=== PATIENT | female | born 1985 | race Caucasian/White ===

== ENCOUNTER 2017-01-31 18:46 | Emergency (ER) | payer SELFPAY ==
[2017-01-31] MEDS ORDERED: Sodium Chloride 0.9% 1,000 ML IV ONE (19:14)
[2017-01-31 19:56] LABS: CHLORIDE,CL 108 mmol/L (98-110); SODIUM,NA 142 mmol/L (136-146)
--- NOTE | 2017-01-31 21:20 | EDM.PDOC ---
ED HPI GENERAL MEDICAL PROBLEM - General Chief Complaint: Cardiovascular Problem Stated Complaint: HEART PALPITATIONS Time Seen by Provider: 01/31/17 19:13 Source of Information: Reports: Patient History Limitations: Reports: No Limitations - History of Present Illness INITIAL COMMENTS - FREE TEXT/NARRATIVE: HISTORY AND PHYSICAL: History of present illness: [31-year-old female with a prior history of palpitations previously worked up in the emergency department a workup which was benign, now presents emergency department concerned about palpitations over the last day. Patient states she has intermittent fluttering feeling in her chest. She does not get lightheaded or nearly faint. She has no chest pain or shortness of breath. Patient describes feels like her heart intermittent he skips a beat. She's had no recent illness and has no other complaints. She states her father had some coronary artery disease so she was concerned. Patient has never had a Holter monitor previously she denies the possibility of . Review of systems: As per history of present illness and below otherwise all systems reviewed and negative. Past medical history: As per history of present illness and as reviewed below otherwise noncontributory. Surgical history: As per history of present illness and as reviewed below otherwise noncontributory. Social history: No reported history of drug or alcohol abuse. Family history: As per history of present illness and as reviewed below otherwise noncontributory. Physical exam: Well-appearing patient distress supple neck clear lungs. Rate and rhythm benign abdomen nonfocal neuro benign exam. HEENT: Atraumatic, normocephalic, pupils reactive, negative for conjunctival pallor or scleral icterus, mucous membranes moist, throat clear, neck supple, nontender, trachea midline. Lungs: Clear to auscultation, breath sounds equal bilaterally, chest nontender. Heart: S1S2, regular, negative for clicks, rubs, or JVD. Abdomen: Soft, nondistended, nontender. Negative for masses or hepatosplenomegaly. Negative for costovertebral tenderness. Pelvis: Stable nontender. Genitourinary: Deferred. Rectal: Deferred. Extremities: Atraumatic, negative for cords or calf pain. Neurovascular unremarkable. Neuro: Awake, alert, oriented. Cranial nerves II through XII unremarkable. Cerebellum unremarkable. Motor and sensory unremarkable throughout. Exam nonfocal. Diagnostics: [EKG with normal sinus rhythm at 77 normal axis no STEMI interpreted by me Chest x-ray no acute disease interpreted by me Therapeutics: [IV fluids] Impression: [Palpitations] Plan: [Signs and symptoms consistent with palpitations. Full workup unremarkable. Patient well-appearing with a benign EKG no evidence of arrhythmia. Suspect sinus arrhythmia versus premature contractions. No further workup or treatment indicated at this time. Patient agrees with outpatient follow-up with her primary care for reevaluation and Holter monitoring as needed. Strict return precautions given] Definitive disposition and diagnosis as appropriate pending reevaluation and review of above. 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 Hematologic History: Reports: None Dermatologic History: Reports: None - Infectious Disease History Infectious Disease History: Reports: Chicken Pox - Past Surgical History HEENT Surgical History: Reports: None Cardiovascular Surgical History: Reports: None Social & Family History - Family History Family Medical History: Noncontributory Endocrine/Metabolic: Reports: Diabetes, type II - Tobacco Use Smoking Status *Q: Never Smoker Second Hand Smoke Exposure: No - Alcohol Use Days Per Week of Alcohol Use: 0 - Recreational Drug Use Recreational Drug Use: No ED ROS GENERAL - Review of Systems Review Of Systems: See Below (History of present illness) ED EXAM, GENERAL - Physical Exam Exam: See Below (History of present illness) Course - Vital Signs Last Recorded V/S: Last Vital Signs Temp 37.3 C 01/31/17 18:46 Pulse 75 01/31/17 18:46 Resp 18 01/31/17 18:46 BP 121/73 01/31/17 18:46 Pulse Ox 95 01/31/17 18:46 - Orders/Labs/Meds Orders: Active Orders 24 hr Category Date Time Status EKG Documentation Completion [RC] STAT Care 01/31/17 19:14 Active Chest 1V Frontal [CR] Stat Exams 01/31/17 19:14 Ordered Peripheral IV Insertion Adult [OM.PC] Stat Oth 01/31/17 19:14 Ordered Labs: Laboratory Tests 01/31/17 01/31/17 01/31/17 Range/Units 19:18 19:38 19:38 WBC 10.31 (4.0-11.0) K/uL RBC 4.93 (4.30-5.90) M/uL Hgb 15.4 (12.0-16.0) g/dL Hct 44.2 (36.0-46.0) % MCV 89.7 (80.0-98.0) fL MCH 31.2 (27.0-32.0) pg MCHC 34.8 (31.0-37.0) g/dL RDW Std Deviation 42.3 (28.0-62.0) fl RDW Coeff of Kelly 13 (11.0-15.0) % Plt Count 263 (150-400) K/uL MPV 10.00 (7.40-12.00) fL Neut % (Auto) 60.4 (48.0-80.0) % Lymph % (Auto) 26.8 (16.0-40.0) % Roosevelt % (Auto) 10.1 (0.0-15.0) % Eos % (Auto) 2.4 (0.0-7.0) % Baso % (Auto) 0.3 (0.0-1.5) % Neut # (Auto) 6.2 H (1.4-5.7) K/uL Lymph # (Auto) 2.8 H (0.6-2.4) K/uL Roosevelt # (Auto) 1.0 H (0.0-0.8) K/uL Eos # (Auto) 0.3 (0.0-0.7) K/uL Baso # (Auto) 0.0 (0.0-0.1) K/uL Nucleated RBC % 0.0 /100WBC Nucleated RBCs # 0 K/uL Sodium (136-146) mmol/L Potassium (3.5-5.1) mmol/L Chloride (98-110) mmol/L Carbon Dioxide (21-31) mmol/L BUN (6.0-23.0) mg/dL Creatinine (0.6-1.5) mg/dL Est Cr Clr Drug Dosing mL/min Estimated GFR (MDRD) ml/min Glucose (60-110) mg/dL Calcium (8.8-10.8) mg/dL Troponin I < 0.10 (0.0-0.29) NG/ML TSH 3rd Generation (0.47-5.0) uIU/mL Urine HCG, Qual NEGATIVE (NEGATIVE) 01/31/17 Range/Units 19:38 WBC (4.0-11.0) K/uL RBC (4.30-5.90) M/uL Hgb (12.0-16.0) g/dL Hct (36.0-46.0) % MCV (80.0-98.0) fL MCH (27.0-32.0) pg MCHC (31.0-37.0) g/dL RDW Std Deviation (28.0-62.0) fl RDW Coeff of Kelly (11.0-15.0) % Plt Count (150-400) K/uL MPV (7.40-12.00) fL Neut % (Auto) (48.0-80.0) % Lymph % (Auto) (16.0-40.0) % Roosevelt % (Auto) (0.0-15.0) % Eos % (Auto) (0.0-7.0) % Baso % (Auto) (0.0-1.5) % Neut # (Auto) (1.4-5.7) K/uL Lymph # (Auto) (0.6-2.4) K/uL Roosevelt # (Auto) (0.0-0.8) K/uL Eos # (Auto) (0.0-0.7) K/uL Baso # (Auto) (0.0-0.1) K/uL Nucleated RBC % /100WBC Nucleated RBCs # K/uL Sodium 142 (136-146) mmol/L Potassium 4.1 (3.5-5.1) mmol/L Chloride 108 (98-110) mmol/L Carbon Dioxide 23 (21-31) mmol/L BUN 11 (6.0-23.0) mg/dL Creatinine 0.9 (0.6-1.5) mg/dL Est Cr Clr Drug Dosing 96.39 mL/min Estimated GFR (MDRD) > 60.0 ml/min Glucose 93 (60-110) mg/dL Calcium 9.3 (8.8-10.8) mg/dL Troponin I (0.0-0.29) NG/ML TSH 3rd Generation 4.77 (0.47-5.0) uIU/mL Urine HCG, Qual (NEGATIVE) Meds: Medications Discontinued Medications Generic Name Dose Route Start Last Admin Trade Name Susan PRN Reason Stop Dose Admin Sodium Chloride 1,000 mls @ 999 mls/hr 01/31/17 19:14 01/31/17 19:33 Normal Saline IV 01/31/17 20:14 999 mls/hr .Bolus ONE Administration Departure - Departure Time of Disposition: 21:20 Disposition: Home, Self-Care 01 Condition: Good Clinical Impression: Palpitations Referrals: PCP,None [Primary Care Provider] - Additional Instructions: Is not clear what has been causing her palpitations over the last day but a full workup including labs EKG and chest x-ray has all been unremarkable. No further workup or treatment is necessary at this time. Follow-up with your doctor in the next one to 2 days for reevaluation and to discuss and arrange Holter monitoring if indicated. Rest and drink plenty of fluids. Return immediately for new severe or worsening symptoms - My Orders Last 24 Hours: My Active Orders 01/31/17 19:14 EKG Documentation Completion [RC] STAT Chest 1V Frontal [CR] Stat Peripheral IV Insertion Adult [OM.PC] Stat - Assessment/Plan Last 24 Hours: My Active Orders 01/31/17 19:14 EKG Documentation Completion [RC] STAT Chest 1V Frontal [CR] Stat Peripheral IV Insertion Adult [OM.PC] Stat
[2017-01-31 21:38] VITALS: BP 123/56
--- NOTE | 2017-02-01 15:42 | CR ---
EXAM DATE: 01/31/17 PATIENT'S AGE: 31 Patient: ARTHUR YOUNG Facility: [place], [place] Site . Site : 1985 Study: XRay Chest [id number]/2/2017 9:52:17 PM Ordering Physician: Calixto Owens Final Report: INDICATION: Shortness of breath TECHNIQUE: Chest radiograph 1 view COMPARISON: None FINDINGS: Moderate degradation of image quality noted due to body habitus. Cardiovascular and mediastinum: The cardiac silhouette is normal in appearance and size. Mediastinum is within normal limits. Lungs and pleural space: Both lungs are unremarkable in appearance. No sign of pleural effusion. No pneumothorax is seen. Bones and soft tissues: No significant findings. IMPRESSION: 1. No acute cardiopulmonary disease seen. Dictated by: Shayan De La O MD @ 01/31/2017 22:41:38 (Electronic Signature) Report Signed by Proxy. INTERFA[facility] MEDICAL CENTEREdith
== END 2017-01-31 21:30 | disposition home or self-care (01) ==
LOC: MW.ED 18:46
DX: R00.2 Palpitations (principal); E11.9 Type 2 diabetes mellitus without complications; Z88.0 Allergy status to penicillin
CPT/HCPCS: 36415; 71010; 80048; 81025; 84443; 84484; 85025; 93005; 96360; 99285; J7040; 99283

== ENCOUNTER 2017-07-05 15:45 | Emergency (ER) | payer SELFPAY ==
--- NOTE | 2017-07-05 16:35 | EDM.PDOC ---
ED HPI GENERAL MEDICAL PROBLEM - General Chief Complaint: Respiratory Problem Stated Complaint: FLU-LIKE SYMPTOMS Time Seen by Provider: 07/05/17 16:20 Source of Information: Reports: Patient History Limitations: Reports: No Limitations - History of Present Illness INITIAL COMMENTS - FREE TEXT/NARRATIVE: HISTORY AND PHYSICAL: History of present illness: [A she comes to the emergency room complaining of fever chills dry cough headache and body aches. She spent the weekend with a coworker whom she just found out was diagnosed with influenza B. She would like to be tested today. She 's not taken any Tylenol or ibuprofen for her symptoms. She complains of some mild ear tenderness. Clear colored runny nose. Cough is primarily dry. No abdominal pain nausea or vomiting. She heard some mild wheezing this morning but none currently. Denies chest pain shortness of breath and difficulty breathing. Has no other complaints or concerns at this time. She works at a local [employer].] Review of systems: As per history of present illness and below otherwise all systems reviewed and negative. Past medical history: As per history of present illness and as reviewed below otherwise noncontributory. Surgical history: As per history of present illness and as reviewed below otherwise noncontributory. Social history: No reported history of drug or alcohol abuse. Family history: As per history of present illness and as reviewed below otherwise noncontributory. Physical exam: HEENT: Atraumatic, normocephalic. TMs are pearly cole with mild effusions present bilaterally. Oral mucous membranes are pink and moist. No tonsillar swelling erythema or exudate. Neck supple, no lymphadenopathy. Nares are patent with clear discharge present. This is nontender with palpation. Lungs: Clear to auscultation, breath sounds equal bilaterally, chest nontender. no wheezing crackles or rales. Heart: S1S2, regular, negative for clicks, rubs, or JVD. Abdomen: Soft, nondistended, nonteNo masses guarding or rebound.lvis: Stable nontender. Genitourinary: Deferred. Rectal: Deferred. Extremities: Atraumatic. Neurovascular unremarkable. Neuro: Awake, alert, oriented. Motor and sensory unremarkable throughout. Exam nonfocal. Diagnostics: [ influenza A and B swab ] Impression: [Viral illness] Plan: [Discussed with patient that her influenza swabs are negative and that her symptoms are consistent with a viral syndrome. Recommend she push fluids, take [id number] analgesics and fever tamale machine feeder, treat symptomatically and follow- up with PCP. She is in agreement with today's plan. All of her questions are answered and concerns are addressed. Definitive disposition and diagnosis as appropriate pending reevaluation and review of above. 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 Endocrine/Metabolic History: Reports: Hypothyroidism Hematologic History: Reports: None Dermatologic History: Reports: None - Infectious Disease History Infectious Disease History: Reports: Chicken Pox - Past Surgical History HEENT Surgical History: Reports: None Cardiovascular Surgical History: Reports: None Social & Family History - Family History Family Medical History: Noncontributory Endocrine/Metabolic: Reports: Diabetes, type II - Tobacco Use Smoking Status *Q: Never Smoker Second Hand Smoke Exposure: No - Alcohol Use Days Per Week of Alcohol Use: 0 - Recreational Drug Use Recreational Drug Use: No ED ROS GENERAL - Review of Systems Review Of Systems: ROS reveals no pertinent complaints other than HPI. ED EXAM, GENERAL - Physical Exam Exam: See Below Course - Vital Signs Last Recorded V/S: Last Vital Signs Temp 99.0 F 07/05/17 15:57 Pulse 89 07/05/17 17:30 Resp 20 07/05/17 17:30 BP 130/79 07/05/17 17:30 Pulse Ox 99 07/05/17 17:30 Departure - Departure Time of Disposition: 17:16 Disposition: Home, Self-Care 01 Condition: Good Clinical Impression: Viral illness - Discharge Information Instructions: Viral Illness, Adult Referrals: Paige Souza DO [Primary Care Provider] - Forms: ED Department Discharge Additional Instructions: The following information is given to patients seen in the emergency department who are being discharged to home. This information is to outline your options for follow-up care. We provide all patients seen in our emergency department with a follow-up referral. The need for follow-up, as well as the timing and circumstances, are variable depending upon the specifics of your emergency department visit. If you don't have a primary care physician on staff, we will provide you with a referral. We always advise you to contact your personal physician following an emergency department visit to inform them of the circumstance of the visit and for follow-up with them and/or the need for any referrals to a consulting specialist. The emergency department will also refer you to a specialist when appropriate. This referral assures that you have the opportunity for follow-up care with a specialist. All of these measure are taken in an effort to provide you with optimal care, which includes your follow-up. Under all circumstances we always encourage you to contact your private physician who remains a resource for coordinating your care. When calling for follow-up care, please make the office aware that this follow-up is from your recent emergency room visit. If for any reason you are refused follow-up, please contact the [facility] emergency department at and asked to speak to the emergency department charge nurse. [facility] [address] [place], [place] [id number] Follow-up with her local primary care provider at the clinic listed above in 48- 72 hours. Push fluids, get plenty of rest, Tylenol alternating with ibuprofen as needed for fever or discomfort. Return to ER as needed as discussed.
[2017-07-05 17:36] VITALS: BP 130/79
== END 2017-07-05 17:30 | disposition home or self-care (01) ==
LOC: MW.ED 15:45
DX: B34.9 Viral infection, unspecified (principal); E03.9 Hypothyroidism, unspecified; Z88.0 Allergy status to penicillin
CPT/HCPCS: 87804; 99282; 99283

== ENCOUNTER 2021-01-18 18:28 | Observation (INO) | payer BC ==
[2021-01-18] MEDS ORDERED: Ondansetron 4 MG/2 ML SDV IVPUSH ONE (19:01)
[2021-01-18] MEDS ORDERED: Sodium Chloride 0.9% 1,000 ML IV ONE (19:01)
[2021-01-18] MEDS ORDERED: Morphine 4 MG/ML Syringe IVPUSH ONE (19:01)
[2021-01-18 19:48] LABS: BLOOD UREA NITROGEN,BUN 15 mg/dL (7.0-18.0); CARBON DIOXIDE,CO2 24.4 mmol/L (21.0-32.0); CHLORIDE,CL 105 mmol/L (98-107); GLUCOSE RANDOM 140 mg/dL (74-106); LIPASE 94 U/L (73-393); POTASSIUM,K 4.7 mmol/L (3.5-5.1); SODIUM,NA 141 mmol/L (136-145)
--- NOTE | 2021-01-18 20:02 | EDM.PDOC ---
<Liam Santoro D - Last Filed: 01/18/21 22:49> ED HPI GENERAL MEDICAL PROBLEM - General Chief Complaint: Abdominal Pain Stated Complaint: RIGHT SIDE PAIN Time Seen by Provider: 01/18/21 18:56 - Related Data Allergies Allergy/AdvReac Type Severity Reaction Status Date / Time ciprofloxacin Allergy Redness Verified 01/20/21 02:22 Penicillins Allergy Rash Verified 01/19/21 00:32 ED ROS GENERAL - Review of Systems Review Of Systems: See Below ED EXAM, GI/ABD - Physical Exam Exam: See Below Course - Vital Signs Text/Narrative:: Patient was signed out to me pending CT scan. CT scan shows a dilated appendix with periappendiceal fat stranding consistent with appendicitis. Patient well- appearing when reexamined but does have some periumbilical and right lower quadrant abdominal tenderness. IV fluids of Cipro Flagyl n.p.o. and admission for surgical resection Departure - Departure Time of Disposition: 22:50 Disposition: Refer to Observation Condition: Good Clinical Impression: Appendicitis Qualifiers: Appendicitis type: acute appendicitis Acute appendicitis type: with localized peritonitis Appendicitis gangrene presence: unspecified whether gangrene present Appendicitis abscess presence: unspecified whether abscess present - Discharge Information <Belkis Welch E - Last Filed: 01/20/21 09:52> ED HPI GENERAL MEDICAL PROBLEM - General Source of Information: Reports: Patient History Limitations: Reports: No Limitations - History of Present Illness INITIAL COMMENTS - FREE TEXT/NARRATIVE: HISTORY AND PHYSICAL: History of present illness: Patient is a 35-year-old female who presents to the emergency room with complaints of right lower quadrant pain and nausea. She states approximately 2 hours prior to arrival she developed sharp crampy type right lower quadrant pain with associated nausea. Patient denies any fever, chills, headache, change in vision, syncope or near syncope. Denies any chest pain, back pain, shortness of breath or cough. Denies any vomiting, diarrhea, constipation or dysuria. Has not noted any blood in urine or stool. Currently on her menses, normal. Denies any abnormal vaginal discharge or concerns for STIs. Patient has been eating and drinking appropriately. Review of systems: As per history of present illness and below otherwise all systems reviewed and negative. Past medical history: As per history of present illness and as reviewed below otherwise noncontributory. Surgical history: As per history of present illness and as reviewed below otherwise noncontributory. Social history: See social history for further information Family history: As per history of present illness and as reviewed below otherwise noncontributory. Physical exam: General: Well developed and well nourished 35 year old male. Alert and o rientated x 3. Nontoxic in appearance and in no acute distress. Vital signs are stable and have been reviewed by me. Nursing notes were reviewed. HEENT: Atraumatic, normocephalic, pupils equal and reactive bilaterally, negative for conjunctival pallor or scleral icterus, mucous membranes moist, trachea midline. No drooling or trismus noted. No meningeal signs. No hot potato voice noted. Lungs: Clear to auscultation bilaterally. No wheezes, rales, or rhonchi. Chest nontender. Normal work of breathing, no accessory muscles used. Heart: S1S2, regular rate and rhythm without overt murmur, gallops, or rubs. No JVD. No peripheral edema Abdomen: Soft, obese, right upper and lower quadrant tenderness. No rebound tenderness. Normoactive bowel sounds. Negative for masses or costovertebral tenderness. Skin: Intact, warm, dry. No lesions or rashes noted. Hematologic: No petechiae or purpra. Mucosa appropriate color and normal nail bed color and refill. Extremities: Atraumatic, moves all extremities per self without difficulty or deficits, negative for cords or calf pain. Neurovascular unremarkable. Neuro: Awake, alert, oriented. Cranial nerves II through XII unremarkable. Cerebellum unremarkable. Motor and sensory unremarkable throughout. Exam nonfocal. Psychiatric: Mood and affect are appropriate. Normal thought process. Answering questions appropriately. Please note that the patient was seen and evaluated during the 2019 SARS-CoV-2 novel coronavirus pandemic period. Community viral transmission is ongoing at time of this encounter and the emergency department is operating under pandemic response procedures. Medical Decision Making: Patient is a 35-year-old female who presents to the emergency room with complaints of right lower quadrant pain and nausea over the past 2 hours. Patient is tearful during my physical exam. The right upper quadrant and right lower quadrant are both tender to palpation. She states she has had her gallbladder removed. She is concerned that she still has her appendix. We will do basic lab work and likely a CT scan to rule out appendicitis. She does have a ride, will give her some pain management and nausea medications with IV fluids. Patient is agreeable with plan of care. Lab work is unremarkable. She continues to have some tenderness, will move forward with CT scan. VSS. Acute appendicitis. No evidence of appendiceal perforation or abscess. Multiple nonacute findings are noted such as diffuse fatty infiltration of liver, mild splenomegaly, several small bilateral nonobstructing stones. Dr Santoro to arrange surgical consult Diagnostics: CBC, CMP, Lipase, UA, HCGU, CT abd/pelvis Therapeutics: IV fluids, Zofran, Morphine Prescription: Zofran Impression: Appendicitis Definitive disposition and diagnosis as appropriate pending reevaluation and review of above. Left Lower Abdomen Pain Score (Numeric/FACES): 10 Past Medical History - Past Health History Medical/Surgical History: Denies Medical/Surgical History HEENT History: Reports: None Cardiovascular History: Reports: None Respiratory History: Reports: None [employer] History: Reports: None Endocrine/Metabolic History: Reports: Hypothyroidism Hematologic History: Reports: None Dermatologic History: Reports: None - Infectious Disease History Infectious Disease History: Reports: Chicken Pox - Past Surgical History HEENT Surgical History: Reports: None Cardiovascular Surgical History: Reports: None Social & Family History - Family History Family Medical History: No Pertinent Family History Endocrine/Metabolic: Reports: Diabetes, type II - Tobacco Use Tobacco Use Status *Q: Never Tobacco User - Recreational Drug Use Recreational Drug Use: No Course - Vital Signs Last Recorded V/S: Last Vital Signs Temp 96.8 F L 01/20/21 07:44 Pulse 64 01/20/21 07:44 Resp 22 H 01/20/21 07:44 BP 120/65 01/20/21 07:44 Pulse Ox 94 L 01/20/21 07:44 - Orders/Labs/Meds Orders: Medication Orders Acetaminophen (Acetaminophen 325 Mg Tab) 325 mg PO Q4H PRN PRN Reason: Fever Greater Than 101 Hydrocodone Bitart/Acetaminophen (Acetaminophen/Hydrocodone 325-5 Mg Tab) 1 - 2 tab PO Q4H PRN PRN Reason: Pain (moderate 4-6) Albuterol (Albuterol 0.083% 2.5 Mg/3 Ml Neb Soln) 2.5 mg NEB ONETIME PRN PRN Reason: Wheezing Droperidol (Droperidol 5 Mg/2 Ml Sdv) 0.625 mg IVPUSH ONETIME PRN PRN Reason: Nausea/Vomiting Fentanyl (Fentanyl 100 Mcg/2 Ml Sdv) 50 mcg IVPUSH Q5M PRN PRN Reason: Pain (mild 1-3) Hydromorphone HCl (Hydromorphone 1 Mg/Ml Syringe) 1 mg IVPUSH Q10M PRN PRN Reason: Pain (moderate 4-6) Lactated Ringer's (Ringers, Lactated) 1,000 mls @ 125 mls/hr IV ASDIRECTED [facility] Last Admin: 01/20/21 00:00 Dose: 125 mls/hr Documented by: Infusion: 01/19/21 16:31 Dose: 125 mls/hr Documented by: Admin: 01/19/21 08:31 Dose: 125 mls/hr Documented by: Infusion: 01/19/21 07:01 Dose: 125 mls/hr Documented by: Admin: 01/18/21 23:01 Dose: 125 mls/hr Documented by: BORIS Ciprofloxacin/Dextrose 400 mg/ (Premix) 200 mls @ 200 mls/hr IV Q12H [facility] Last Admin: 01/19/21 23:46 Dose: 200 mls/hr Documented by: Infusion: 01/19/21 11:22 Dose: 200 mls/hr Documented by: Admin: 01/19/21 10:22 Dose: 200 mls/hr Documented by: Admin: 01/18/21 23:17 Dose: Not Given Documented by: BORIS Lactated Ringer's (Ringers, Lactated) 1,000 mls @ 125 mls/hr IV ASDIRECTED [facility] Metoclopramide HCl (Metoclopramide 10 Mg/2 Ml Sdv) 10 mg IVPUSH ONETIME PRN PRN Reason: Nausea/Vomiting Morphine Sulfate (Morphine 2 Mg/Ml Syringe) 1 - 3 mg IVPUSH Q1H PRN PRN Reason: Pain Last Admin: 01/19/21 03:47 Dose: 2 mg Documented by: Admin: 01/18/21 23:08 Dose: 2 mg Documented by: BORIS Morphine Sulfate (Morphine 2 Mg/Ml Syringe) 2 mg IVPUSH Q10M PRN PRN Reason: Pain (severe 7-10) Naloxone HCl (Naloxone 0.4 Mg/Ml Sdv) 0.1 mg IVPUSH ASDIRECTED PRN PRN Reason: Respiratory Depression Ondansetron HCl (Ondansetron 4 Mg/2 Ml Sdv) 4 mg IVPUSH ONETIME PRN PRN Reason: Nausea/Vomiting Labs: Laboratory Tests 01/18/21 01/18/21 01/18/21 Range/Units 19:15 19:15 19:30 WBC 7.45 (4.0-11.0) K/uL RBC 5.10 (4.30-5.90) M/uL Hgb 15.8 (12.0-16.0) g/dL Hct 45.2 (36.0-46.0) % MCV 88.6 (80.0-98.0) fL MCH 31.0 (27.0-32.0) pg MCHC 35.0 (31.0-37.0) g/dL RDW Std Deviation 41.7 (28.0-62.0) fl RDW Coeff of Kelly 13 (11.0-15.0) % Plt Count 251 (150-400) K/uL MPV 10.30 (7.40-12.00) fL Neut % (Auto) 65.0 (48.0-80.0) % Lymph % (Auto) 26.2 (16.0-40.0) % [place] % (Auto) 6.6 (0.0-15.0) % Eos % (Auto) 1.9 (0.0-7.0) % Baso % (Auto) 0.3 (0.0-1.5) % Neut # (Auto) 4.9 (1.4-5.7) K/uL Lymph # (Auto) 2.0 (0.6-2.4) K/uL [place] # (Auto) 0.5 (0.0-0.8) K/uL Eos # (Auto) 0.1 (0.0-0.7) K/uL Baso # (Auto) 0.0 (0.0-0.1) K/uL Nucleated RBC % 0.0 /100WBC Nucleated RBCs # 0 K/uL Sodium 141 (136-145) mmol/L Potassium 4.7 (3.5-5.1) mmol/L Chloride 105 (98-107) mmol/L Carbon Dioxide 24.4 (21.0-32.0) mmol/L BUN 15 (7.0-18.0) mg/dL Creatinine 1.0 (0.6-1.0) mg/dL Est Cr Clr Drug Dosing 83.62 mL/min Estimated GFR (MDRD) > 60.0 ml/min Glucose 140 H (74-106) mg/dL Calcium 8.9 (8.5-10.1) mg/dL Total Bilirubin 0.4 (0.2-1.0) mg/dL AST 33 (15-37) IU/L ALT 56 (14-63) IU/L Alkaline Phosphatase 63 (46-116) U/L Total Protein 7.1 (6.4-8.2) g/dL Albumin 3.7 (3.4-5.0) g/dL Globulin 3.4 (2.6-4.0) g/dL Albumin/Globulin Ratio 1.1 (0.9-1.6) Lipase 94 (73-393) U/L Urine Color Urine Appearance Urine pH (5.0-8.0) Ur Specific [place] (1.001-1.035) Urine Protein (NEGATIVE) mg/dL Urine Glucose (UA) (NEGATIVE) mg/dL Urine Ketones (NEGATIVE) mg/dL Urine Occult Blood (NEGATIVE) Urine Nitrite (NEGATIVE) Urine Bilirubin (NEGATIVE) Urine Urobilinogen (<2.0) EU/dL Ur Leukocyte Esterase (NEGATIVE) Urine RBC (0-2/HPF) Urine WBC (0-5/HPF) Ur Epithelial Cells (NONE-FEW) Amorphous Sediment (NEGATIVE) Urine Bacteria (NEGATIVE) Urine Mucus (NONE-MOD) Urine HCG, Qual (NEGATIVE) SARS-CoV-2 RNA (AILEEN) NEGATIVE (NEGATIVE) 01/18/21 01/18/21 Range/Units 19:50 19:50 WBC (4.0-11.0) K/uL RBC (4.30-5.90) M/uL Hgb (12.0-16.0) g/dL Hct (36.0-46.0) % MCV (80.0-98.0) fL MCH (27.0-32.0) pg MCHC (31.0-37.0) g/dL RDW Std Deviation (28.0-62.0) fl RDW Coeff of Kelly (11.0-15.0) % Plt Count (150-400) K/uL MPV (7.40-12.00) fL Neut % (Auto) (48.0-80.0) % Lymph % (Auto) (16.0-40.0) % [place] % (Auto) (0.0-15.0) % Eos % (Auto) (0.0-7.0) % Baso % (Auto) (0.0-1.5) % Neut # (Auto) (1.4-5.7) K/uL Lymph # (Auto) (0.6-2.4) K/uL [place] # (Auto) (0.0-0.8) K/uL Eos # (Auto) (0.0-0.7) K/uL Baso # (Auto) (0.0-0.1) K/uL Nucleated RBC % /100WBC Nucleated RBCs # K/uL Sodium (136-145) mmol/L Potassium (3.5-5.1) mmol/L Chloride (98-107) mmol/L Carbon Dioxide (21.0-32.0) mmol/L BUN (7.0-18.0) mg/dL Creatinine (0.6-1.0) mg/dL Est Cr Clr Drug Dosing mL/min Estimated GFR (MDRD) ml/min Glucose (74-106) mg/dL Calcium (8.5-10.1) mg/dL Total Bilirubin (0.2-1.0) mg/dL AST (15-37) IU/L ALT (14-63) IU/L Alkaline Phosphatase (46-116) U/L Total Protein (6.4-8.2) g/dL Albumin (3.4-5.0) g/dL Globulin (2.6-4.0) g/dL Albumin/Globulin Ratio (0.9-1.6) Lipase (73-393) U/L Urine Color YELLOW Urine Appearance HAZY Urine pH 5.5 (5.0-8.0) Ur Specific [place] >= 1.030 (1.001-1.035) Urine Protein NEGATIVE (NEGATIVE) mg/dL Urine Glucose (UA) NEGATIVE (NEGATIVE) mg/dL Urine Ketones NEGATIVE (NEGATIVE) mg/dL Urine Occult Blood MODERATE H (NEGATIVE) Urine Nitrite NEGATIVE (NEGATIVE) Urine Bilirubin NEGATIVE (NEGATIVE) Urine Urobilinogen 0.2 (<2.0) EU/dL Ur Leukocyte Esterase NEGATIVE (NEGATIVE) Urine RBC 1-3 (0-2/HPF) Urine WBC 0-2 (0-5/HPF) Ur Epithelial Cells FEW (NONE-FEW) Amorphous Sediment FEW (NEGATIVE) Urine Bacteria FEW (NEGATIVE) Urine Mucus LIGHT (NONE-MOD) Urine HCG, Qual NEGATIVE (NEGATIVE) SARS-CoV-2 RNA (AILEEN) (NEGATIVE) Meds: Medications Generic Name Dose Route Start Last Admin Trade Name Freq PRN Reason Stop Dose Admin Acetaminophen 325 mg 01/19/21 14:12 Acetaminophen 325 Mg Tab PO Q4H PRN Fever Greater Than 101 Hydrocodone Bitart/Acetaminophen 1 - 2 tab 01/19/21 14:12 Acetaminophen/Hydrocodone 325-5 Mg Tab PO Q4H PRN Pain (moderate 4-6) Albuterol 2.5 mg 01/19/21 09:18 Albuterol 0.083% 2.5 Mg/3 Ml Neb Soln NEB ONETIME PRN Wheezing Droperidol 0.625 mg 01/19/21 09:18 Droperidol 5 Mg/2 Ml Sdv IVPUSH ONETIME PRN Nausea/Vomiting Fentanyl 50 mcg 01/19/21 09:18 Fentanyl 100 Mcg/2 Ml Sdv IVPUSH Q5M PRN Pain (mild 1-3) Hydromorphone HCl 1 mg 01/19/21 09:18 Hydromorphone 1 Mg/Ml Syringe IVPUSH Q10M PRN Pain (moderate 4-6) Lactated Ringer's 1,000 mls @ 125 mls/hr 01/18/21 23:00 01/20/21 00:00 Ringers, Lactated IV 125 mls/hr ASDIRECTED KARL Administration Ciprofloxacin/Dextrose 400 mg/ 200 mls @ 200 mls/hr 01/18/21 23:00 01/19/21 23:46 Premix IV 200 mls/hr Q12H KARL Administration Lactated Ringer's 1,000 mls @ 125 mls/hr 01/19/21 14:15 Ringers, Lactated IV ASDIRECTED KARL Metoclopramide HCl 10 mg 01/19/21 09:18 Metoclopramide 10 Mg/2 Ml Sdv IVPUSH ONETIME PRN Nausea/Vomiting Morphine Sulfate 1 - 3 mg 01/18/21 22:51 01/19/21 03:47 Morphine 2 Mg/Ml Syringe IVPUSH 2 mg Q1H PRN Administration Pain Morphine Sulfate 2 mg 01/19/21 09:18 Morphine 2 Mg/Ml Syringe IVPUSH Q10M PRN Pain (severe 7-10) Naloxone HCl 0.1 mg 01/19/21 09:18 Naloxone 0.4 Mg/Ml Sdv IVPUSH ASDIRECTED PRN Respiratory Depression Ondansetron HCl 4 mg 01/19/21 09:18 Ondansetron 4 Mg/2 Ml Sdv IVPUSH ONETIME PRN Nausea/Vomiting Discontinued Medications Generic Name Dose Route Start Last Admin Trade Name Freq PRN Reason Stop Dose Admin Cefoxitin Sodium Confirm 01/19/21 12:23 Cefoxitin 1 Gm Vial Administered 01/19/21 12:24 Dose 2 gm .ROUTE .STK-MED ONE Dexamethasone Confirm 01/19/21 12:16 Dexamethasone 4 Mg/Ml 5 Ml Mdv Administered 01/19/21 12:17 Dose 20 mg .ROUTE .STK-MED ONE Dexmedetomidine HCl Confirm 01/19/21 12:16 Dexmedetomidine 200 Mcg/2 Ml Sdv Administered 01/19/21 12:17 Dose 200 mcg .ROUTE .STK-MED ONE Fentanyl Confirm 01/19/21 12:17 Fentanyl 100 Mcg/2 Ml Sdv Administered 01/19/21 12:18 Dose 100 mcg .ROUTE .STK-MED ONE Sodium Chloride 1,000 mls @ 999 mls/hr 01/18/21 19:01 01/18/21 19:19 Normal Saline IV 01/18/21 20:01 999 mls/hr STAT ONE Administration Lactated Ringer's 500 mls @ 999 mls/hr 01/18/21 22:46 01/18/21 23:01 Ringers, Lactated IV 01/18/21 23:16 999 mls/hr .BOLUS ONE Administration Ciprofloxacin/Dextrose 400 mg/ 200 mls @ 200 mls/hr 01/18/21 22:47 01/18/21 22:59 Premix IV 01/18/21 23:46 200 mls/hr NOW STA Administration Metronidazole 500 mg/ Premix 100 mls @ 100 mls/hr 01/18/21 22:48 01/18/21 23:01 IV 01/18/21 23:47 100 mls/hr ONETIME ONE Administration Acetaminophen Confirm 01/19/21 12:20 Ofirmev 1000 Mg/100 Ml Administered 01/19/21 12:21 Dose 100 mls @ as directed .ROUTE .STK-MED ONE Iopamidol 100 ml 01/18/21 20:56 01/18/21 20:56 Iopamidol 755 Mg/Ml 500 Ml Multipack Bottle IVPUSH 01/18/21 20:57 100 ml ONETIME STA Administration Ketorolac Tromethamine Confirm 01/19/21 13:14 Ketorolac 30 Mg/Ml Sdv Administered 01/19/21 13:15 Dose 30 mg .ROUTE .STK-MED ONE Lidocaine Confirm 01/19/21 12:16 Lidocaine 2% 5 Ml Sdv Administered 01/19/21 12:17 Dose 5 ml .ROUTE .STK-MED ONE Midazolam HCl Confirm 01/19/21 12:17 Midazolam 1 Mg/Ml 2 Ml Sdv Administered 01/19/21 12:18 Dose 2 mg .ROUTE .STK-MED ONE Morphine Sulfate 4 mg 01/18/21 19:01 01/18/21 19:19 Morphine 4 Mg/Ml Syringe IVPUSH 01/18/21 19:02 4 mg ONETIME ONE Administration Ondansetron HCl 4 mg 01/18/21 19:01 01/18/21 19:19 Ondansetron 4 Mg/2 Ml Sdv IVPUSH 01/18/21 19:02 4 mg ONETIME ONE Administration Ondansetron HCl Confirm 01/19/21 12:16 Ondansetron 4 Mg/2 Ml Sdv Administered 01/19/21 12:17 Dose 4 mg .ROUTE .STK-MED ONE Propofol Confirm 01/19/21 12:16 Propofol 200 Mg/20 Ml Sdv Administered 01/19/21 12:17 Dose 200 mg .ROUTE .STK-MED ONE Rocuronium [place] Confirm 01/19/21 12:17 Rocuronium [place] 50 Mg/5 Ml Syringe Administered 01/19/21 12:18 Dose 50 mg .ROUTE .STK-MED ONE Sugammadex Sodium Confirm 01/19/21 13:14 Sugammadex Sodium 200 Mg/2 Ml Vial Administered 09/20/21 13:15 Dose 200 mg .ROUTE .STK-MED ONE Sepsis Event Note (ED) - Evaluation Sepsis Screening Result: No Definite Risk
[2021-01-18] MEDS ORDERED: Iopamidol 755 MG/ML 500 ML Multipack Bottle IVPUSH STA (20:56)
--- NOTE | 2021-01-18 22:18 | CT ---
INDICATION: RLQ PAIN. CT ABDOMEN AND PELVIS WITH CONTRAST TECHNIQUE: Multidetector CT imaging was performed through the abdomen and pelvis following intravenous contrast administration using 100 mL Isovue 370. Coronal and sagittal reconstructions were generated. COMPARISON: 12/04/2013 CT abdomen and pelvis. FINDINGS: Lower chest: Lung bases are clear. Liver: Diffuse fatty infiltration of the liver. Borderline hepatomegaly. Gallbladder and bile ducts: Status post cholecystectomy, as before. No biliary dilation identified. Pancreas: Unremarkable. Spleen: Mild splenomegaly measuring 16 centimeters. Adrenals: No nodules or masses. Kidneys, ureters, and urinary bladder: Several small bilateral nonobstructing intrarenal stones. No renal masses or hydronephrosis. No bladder mass or definite wall thickening. Gastrointestinal tract and abdominal wall: Normal caliber bowel without wall thickening or obstruction. The appendix extends medially from the cecum and is enlarged, measuring up to 11 millimeters in diameter, with periappendiceal fat stranding, consistent with appendicitis. Small fat-containing umbilical hernia. Vascular structures: Normal for age. Peritoneum: Trace free fluid in the low pelvis, possibly physiologic. No loculated collection to suggest abscess. No free air identified in the abdomen or pelvis. Lymph nodes: No pathologically enlarged nodes identified. Reproductive organs: No pelvic masses. Bones: Minor spinal degenerative changes. IMPRESSION: 1. Acute appendicitis. No evidence of appendiceal perforation or abscess. 2. Multiple nonacute findings as detailed above. CLARY DIA MD [employer] [employer] Dictated by Per Dia MD @ 01/18/2021 10:15:47 PM Please note that all CT scans at this facility use dose modulation, iterative reconstruction, and/or weight-based dosing when appropriate to reduce radiation dose to as low as reasonably achievable. Dictated by: Per Dia MD @ 01/18/2021 22:16:52 (Electronically Signed)
[2021-01-18] MEDS ORDERED: Lactated Ringers 500 ML IV ONE (22:46)
[2021-01-18] MEDS ORDERED: Ciprofloxacin in D5W 400 MG in Premix Bag 1 BAG IV STA ×2 (22:47)
[2021-01-18] MEDS ORDERED: metroNIDAZOLE/Normal Saline 500 MG in Premix Bag 1 BAG IV ONE (22:48)
[2021-01-18] MEDS: Lactated Ringers 1,000 ML IV SCH (23:01)
[2021-01-18] MEDS: Morphine 2 MG/ML SYRINGE IVPUSH PRN (23:08)
[2021-01-18] MEDS: Ciprofloxacin in D5W 400 MG in Premix Bag 1 BAG IV SCH ×2 (23:17)
[2021-01-19] MEDS: Morphine 2 MG/ML SYRINGE IVPUSH PRN (03:47)
--- NOTE | 2021-01-19 07:41 | PCM.HP.2 ---
H&P History of Present Illness - General Date of Service: 01/19/21 Admit Problem/Dx: Admission Diagnosis/Problem Admission Diagnosis/Problem Appendicitis Source of Information: Patient History Limitations: Reports: No Limitations - History of Present Illness Initial Comments - Free Text/Narative: Patient is a 35-year-old female who presented the emergency room late last night complaining of periumbilical pain that migrated to the right lower quadrant. She states the pain started about 4:30 or 4:45 in the afternoon. Initially, her discomfort was periumbilical, but gradually migrated to the right lower quadrant. This is also associated with nausea and anorexia. No episodes of vomiting. Patient states she's had intermittent pain for the last 2 weeks, but it became more severe yesterday. She also noticed increasing discomfort on the ride to the hospital. Symptom Onset Date: 01/18/21 Symptom Onset Time: 16:30 Duration of Symptoms: Reports: Hour(s): Location: Reports: Abdomen Quality: Reports: Ache, Pressure Severity: Moderate Improves with: Reports: Rest Worsens with: Reports: Movement Associated Symptoms: Reports: Loss of Appetite, Nausea/Vomiting (No vomiting) Left Lower Abdomen Pain Score (Numeric/FACES): 10 Middle Abdomen Pain Score (Numeric/FACES): 3 - Related Data Allergies/Adverse Reactions: Allergies Allergy/AdvReac Type Severity Reaction Status Date / Time Penicillins Allergy Rash Verified 01/19/21 00:32 Past Medical History - Past Health History Medical/Surgical History: Denies Medical/Surgical History HEENT History: Reports: None Cardiovascular History: Reports: None Respiratory History: Reports: None 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 Endocrine/Metabolic History: Reports: None Hematologic History: Reports: None Dermatologic History: Reports: None - Infectious Disease History Infectious Disease History: Reports: Chicken Pox - Past Surgical History HEENT Surgical History: Reports: None Cardiovascular Surgical History: Reports: None GI Surgical History: Reports: Cholecystectomy Female Surgical History: Reports: Section Social & Family History - Family History Family Medical History: No Pertinent Family History Endocrine/Metabolic: Reports: Diabetes, type II - Tobacco Use Tobacco Use Status *Q: Never Tobacco User - Caffeine Use Caffeine Use: Reports: Soda - Recreational Drug Use Recreational Drug Use: No H&P Review of Systems - Review of Systems: Review Of Systems: See Below General: Denies: Chills Exam - Exam Exam: See Below - Vital Signs Vital Signs: Last Vital Signs Temp 98.3 F 01/19/21 03:45 Pulse 86 01/19/21 03:45 Resp 17 01/19/21 03:45 BP 126/70 01/19/21 03:45 Pulse Ox 96 01/19/21 03:45 Weight: 283 lb 8 oz - Exam General: Alert, Oriented, Cooperative HEENT: Conjunctiva Clear, PERRLA. No: Scleral Icterus Neck: Supple, Trachea Midline Lungs: Clear to Auscultation, Normal Respiratory Effort Cardiovascular: Regular Rate, Regular Rhythm GI/Abdominal Exam: Normal Bowel Sounds, Soft, Rebound, Tender. No: Guarding, Rigid (Female) Exam: Deferred Rectal (Female) Exam: Deferred Back Exam: Normal Inspection, Full Range of Motion, NT Extremities: Normal Inspection, Normal Range of Motion, Non-Tender, No Pedal Edema, Normal Capillary Refill Peripheral Pulses: 4+: Posterior Tibial (L), Posterior Tibial (R), Dorsalis Pedis (L), Dorsalis Pedis (R) Skin: Warm, Dry, Intact Neurological: Cranial Nerves Intact, Reflexes Equal Bilateral Psychiatric: Alert, Normal Affect, Normal Mood - Patient Data Lab Results Last 24 hrs: Laboratory Results - last 24 hr 01/18/21 01/18/21 01/18/21 Range/Units 19:15 19:15 19:30 WBC 7.45 (4.0-11.0) K/uL RBC 5.10 (4.30-5.90) M/uL Hgb 15.8 (12.0-16.0) g/dL Hct 45.2 (36.0-46.0) % MCV 88.6 (80.0-98.0) fL MCH 31.0 (27.0-32.0) pg MCHC 35.0 (31.0-37.0) g/dL RDW Std Deviation 41.7 (28.0-62.0) fl RDW Coeff of Kelly 13 (11.0-15.0) % Plt Count 251 (150-400) K/uL MPV 10.30 (7.40-12.00) fL Neut % (Auto) 65.0 (48.0-80.0) % Lymph % (Auto) 26.2 (16.0-40.0) % Osborne % (Auto) 6.6 (0.0-15.0) % Eos % (Auto) 1.9 (0.0-7.0) % Baso % (Auto) 0.3 (0.0-1.5) % Neut # (Auto) 4.9 (1.4-5.7) K/uL Lymph # (Auto) 2.0 (0.6-2.4) K/uL [place]borne # (Auto) 0.5 (0.0-0.8) K/uL Eos # (Auto) 0.1 (0.0-0.7) K/uL Baso # (Auto) 0.0 (0.0-0.1) K/uL Nucleated RBC % 0.0 /100WBC Nucleated RBCs # 0 K/uL Sodium 141 (136-145) mmol/L Potassium 4.7 (3.5-5.1) mmol/L Chloride 105 (98-107) mmol/L Carbon Dioxide 24.4 (21.0-32.0) mmol/L BUN 15 (7.0-18.0) mg/dL Creatinine 1.0 (0.6-1.0) mg/dL Est Cr Clr Drug Dosing 83.62 mL/min Estimated GFR (MDRD) > 60.0 ml/min Glucose 140 H (74-106) mg/dL Calcium 8.9 (8.5-10.1) mg/dL Total Bilirubin 0.4 (0.2-1.0) mg/dL AST 33 (15-37) IU/L ALT 56 (14-63) IU/L Alkaline Phosphatase 63 (46-116) U/L Total Protein 7.1 (6.4-8.2) g/dL Albumin 3.7 (3.4-5.0) g/dL Globulin 3.4 (2.6-4.0) g/dL Albumin/Globulin Ratio 1.1 (0.9-1.6) Lipase 94 (73-393) U/L Urine Color Urine Appearance Urine pH (5.0-8.0) Ur Specific [place] (1.001-1.035) Urine Protein (NEGATIVE) mg/dL Urine Glucose (UA) (NEGATIVE) mg/dL Urine Ketones (NEGATIVE) mg/dL Urine Occult Blood (NEGATIVE) Urine Nitrite (NEGATIVE) Urine Bilirubin (NEGATIVE) Urine Urobilinogen (<2.0) EU/dL Ur Leukocyte Esterase (NEGATIVE) Urine RBC (0-2/HPF) Urine WBC (0-5/HPF) Ur Epithelial Cells (NONE-FEW) Amorphous Sediment (NEGATIVE) Urine Bacteria (NEGATIVE) Urine Mucus (NONE-MOD) Urine HCG, Qual (NEGATIVE) SARS-CoV-2 RNA (AILEEN) NEGATIVE (NEGATIVE) 01/18/21 01/18/21 Range/Units 19:50 19:50 WBC (4.0-11.0) K/uL RBC (4.30-5.90) M/uL Hgb (12.0-16.0) g/dL Hct (36.0-46.0) % MCV (80.0-98.0) fL MCH (27.0-32.0) pg MCHC (31.0-37.0) g/dL RDW Std Deviation (28.0-62.0) fl RDW Coeff of Kelly (11.0-15.0) % Plt Count (150-400) K/uL MPV (7.40-12.00) fL Neut % (Auto) (48.0-80.0) % Lymph % (Auto) (16.0-40.0) % Osborne % (Auto) (0.0-15.0) % Eos % (Auto) (0.0-7.0) % Baso % (Auto) (0.0-1.5) % Neut # (Auto) (1.4-5.7) K/uL Lymph # (Auto) (0.6-2.4) K/uL [place] # (Auto) (0.0-0.8) K/uL Eos # (Auto) (0.0-0.7) K/uL Baso # (Auto) (0.0-0.1) K/uL Nucleated RBC % /100WBC Nucleated RBCs # K/uL Sodium (136-145) mmol/L Potassium (3.5-5.1) mmol/L Chloride (98-107) mmol/L Carbon Dioxide (21.0-32.0) mmol/L BUN (7.0-18.0) mg/dL Creatinine (0.6-1.0) mg/dL Est Cr Clr Drug Dosing mL/min Estimated GFR (MDRD) ml/min Glucose (74-106) mg/dL Calcium (8.5-10.1) mg/dL Total Bilirubin (0.2-1.0) mg/dL AST (15-37) IU/L ALT (14-63) IU/L Alkaline Phosphatase (46-116) U/L Total Protein (6.4-8.2) g/dL Albumin (3.4-5.0) g/dL Globulin (2.6-4.0) g/dL Albumin/Globulin Ratio (0.9-1.6) Lipase (73-393) U/L Urine Color YELLOW Urine Appearance HAZY Urine pH 5.5 (5.0-8.0) Ur Specific [place] >= 1.030 (1.001-1.035) Urine Protein NEGATIVE (NEGATIVE) mg/dL Urine Glucose (UA) NEGATIVE (NEGATIVE) mg/dL Urine Ketones NEGATIVE (NEGATIVE) mg/dL Urine Occult Blood MODERATE H (NEGATIVE) Urine Nitrite NEGATIVE (NEGATIVE) Urine Bilirubin NEGATIVE (NEGATIVE) Urine Urobilinogen 0.2 (<2.0) EU/dL Ur Leukocyte Esterase NEGATIVE (NEGATIVE) Urine RBC 1-3 (0-2/HPF) Urine WBC 0-2 (0-5/HPF) Ur Epithelial Cells FEW (NONE-FEW) Amorphous Sediment FEW (NEGATIVE) Urine Bacteria FEW (NEGATIVE) Urine Mucus LIGHT (NONE-MOD) Urine HCG, Qual NEGATIVE (NEGATIVE) SARS-CoV-2 RNA (AILEEN) (NEGATIVE) Result Diagrams: 01/18/21 19:15 01/18/21 19:15 Imaging Impressions Last 24 hrs: CT report has personally been reviewed. Sepsis Event Note - Evaluation Sepsis Screening Result: No Definite Risk - Focused Exam Vital Signs: Vital Signs Temp Pulse Resp BP Pulse Ox 01/19/21 03:45 98.3 F 86 17 126/70 96 01/19/21 00:50 98.6 F 87 18 138/71 97 01/18/21 23:58 102 H 18 140/73 98 01/18/21 23:17 98.4 F 106 H 20 148/88 H 98 01/18/21 22:43 98.2 F 101 H 18 142/79 H 100 01/18/21 21:55 99 18 148/74 H 98 01/18/21 21:12 82 18 118/71 97 01/18/21 19:56 88 18 123/62 97 - Problem List (1) Appendicitis SNOMED Code(s): 86135746 ICD Code: K37 - UNSPECIFIED APPENDICITIS Status: Acute Current Visit: Yes Qualifiers: Appendicitis type: acute appendicitis Acute appendicitis type: with localized peritonitis Appendicitis gangrene presence: unspecified whether gangrene present Appendicitis abscess presence: unspecified whether abscess present Problem List Initiated/Reviewed/Updated: Yes Orders Last 24hrs: Active Orders 24 hr Category Date Time Status Admission Status [Patient Status] [ADT] Stat ADT 01/18/21 22:49 Active Admission Status [Patient Status] [ADT] Stat ADT 01/18/21 22:56 Active Antiembolic Devices [RC] PER UNIT ROUTINE Care 01/19/21 07:34 Ordered Insert Urinary Catheter [OM.PC] Timed Care 01/19/21 07:33 Ordered Oxygen Therapy [RC] ASDIRECTED Care 01/19/21 07:33 Ordered RT Incentive Spirometry [RC] Q1HWA Care 01/19/21 07:33 Ordered Skin Preparation [RC] .PREOP Care 01/19/21 07:33 Ordered Urinary Catheter Assessment [RC] ASDIRECTED Care 01/19/21 07:33 Ordered Urinary Catheter Assessment [RC] ASDIRECTED Care 01/19/21 07:33 Ordered Urinary Catheter Assessment [RC] ASDIRECTED Care 01/19/21 07:34 Ordered Vital Signs [RC] PER UNIT ROUTINE Care 01/19/21 07:33 Ordered NPO After Midnight [Nothing per Oral After Midnight Diet 01/19/21 Breakfast Active Diet] [DIET] Nothing Per Oral Diet [DIET] Diet 01/19/21 Dinner Ordered Ciprofloxacin in D5W [Cipro in D5W 400 MG/200 ML] 400 Med 01/18/21 23:00 Active mg Premix Bag 1 bag IV Q12H Lactated Ringers [Ringers, Lactated] 1,000 ml Med 01/18/21 23:00 Active IV ASDIRECTED Morphine Med 01/18/21 22:51 Active 1 - 3 mg IVPUSH Q1H PRN Antiembolic Hose [OM.PC] Routine Oth 01/19/21 07:33 Ordered Resuscitation Status Routine Resus Stat 01/19/21 07:33 Ordered Medication Orders Lactated Ringer's (Ringers, Lactated) 1,000 mls @ 125 mls/hr IV ASDIRECTED [facility] Last Admin: 01/18/21 23:01 Dose: 125 mls/hr Documented by: BORIS Ciprofloxacin/Dextrose 400 mg/ (Premix) 200 mls @ 200 mls/hr IV Q12H [facility] Last Admin: 01/18/21 23:17 Dose: Not Given Documented by: BORIS Morphine Sulfate (Morphine 2 Mg/Ml Syringe) 1 - 3 mg IVPUSH Q1H PRN PRN Reason: Pain Last Admin: 01/19/21 03:47 Dose: 2 mg Documented by: Admin: 01/18/21 23:08 Dose: 2 mg Documented by: BORIS Assessment/Plan Comment:: Acute appendicitis. Laparoscopic appendectomy, possible open appendectomy. Both operative procedures, along with the risks, including, but not limited to, bleeding, infection, pneumonia, deep venous thrombosis, pulmonary emboli, myocardial infarction, and adjacent organ injury have been reviewed with the patient who voices understanding, offers no questions and agrees to proceed.
[2021-01-19] MEDS: Lactated Ringers 1,000 ML IV SCH (08:31)
[2021-01-19] MEDS ORDERED: HYDROmorphone 1 MG/ML Syringe IVPUSH PRN (09:18)
[2021-01-19] MEDS ORDERED: fentaNYL 100 MCG/2 ML SDV IVPUSH PRN (09:18)
[2021-01-19] MEDS ORDERED: Morphine 2 MG/ML SYRINGE IVPUSH PRN (09:18)
[2021-01-19] MEDS ORDERED: Albuterol 0.083% 2.5 MG/3 ML Neb Soln NEB PRN (09:18)
[2021-01-19] MEDS ORDERED: Metoclopramide 10 MG/2 ML SDV IVPUSH PRN (09:18)
[2021-01-19] MEDS ORDERED: Ondansetron 4 MG/2 ML SDV IVPUSH PRN (09:18)
[2021-01-19] MEDS ORDERED: Naloxone 0.4 MG/ML SDV IVPUSH PRN (09:18)
--- NOTE | 2021-01-19 09:21 | PCM.PREANE ---
Preanesthetic Assessment - Anesthesia/Transfusion/Family Hx Anesthesia History: Prior Anesthesia Without Reaction Family History of Anesthesia Reaction: No Transfusion History: No Prior Transfusion(s) - Review of Systems General: No Symptoms Pulmonary: No Symptoms Cardiovascular: No Symptoms Gastrointestinal: Abdominal Pain, Decreased Appetite, Nausea Neurological: No Symptoms Other: Reports: None - Physical Assessment NPO Status Date: 01/19/21 NPO Status Time: 00:00 Vital Signs: Last Vital Signs Temp 98.3 F 01/19/21 03:45 Pulse 86 01/19/21 03:45 Resp 17 01/19/21 03:45 BP 126/70 01/19/21 03:45 Pulse Ox 96 01/19/21 03:45 Height: 5 ft 8.9 in Weight: 283 lb 8 oz ASA Class: 3E Mental Status: Alert & Oriented x3 Airway Class: Mallampati = 2 Dentition: Reports: Normal Dentition Thyro-Mental Finger Breadths: 3 Mouth Opening Finger Breadths: 3 ROM/Head Extension: Full Lungs: Clear to Auscultation, Normal Respiratory Effort Cardiovascular: Regular Rate, Regular Rhythm - Lab Values: Laboratory Last Values WBC 7.45 K/uL (4.0-11.0) 01/18/21 19:15 RBC 5.10 M/uL (4.30-5.90) 01/18/21 19:15 Hgb 15.8 g/dL (12.0-16.0) 01/18/21 19:15 Hct 45.2 % (36.0-46.0) 01/18/21 19:15 MCV 88.6 fL (80.0-98.0) 01/18/21 19:15 MCH 31.0 pg (27.0-32.0) 01/18/21 19:15 MCHC 35.0 g/dL (31.0-37.0) 01/18/21 19:15 RDW Std Deviation 41.7 fl (28.0-62.0) 01/18/21 19:15 RDW Coeff of Kelly 13 % (11.0-15.0) 01/18/21 19:15 Plt Count 251 K/uL (150-400) 01/18/21 19:15 MPV 10.30 fL (7.40-12.00) 01/18/21 19:15 Neut % (Auto) 65.0 % (48.0-80.0) 01/18/21 19:15 Lymph % (Auto) 26.2 % (16.0-40.0) 01/18/21 19:15 Brooke % (Auto) 6.6 % (0.0-15.0) 01/18/21 19:15 Eos % (Auto) 1.9 % (0.0-7.0) 01/18/21 19:15 Baso % (Auto) 0.3 % (0.0-1.5) 01/18/21 19:15 Neut # (Auto) 4.9 K/uL (1.4-5.7) 01/18/21 19:15 Lymph # (Auto) 2.0 K/uL (0.6-2.4) 01/18/21 19:15 Brooke # (Auto) 0.5 K/uL (0.0-0.8) 01/18/21 19:15 Eos # (Auto) 0.1 K/uL (0.0-0.7) 01/18/21 19:15 Baso # (Auto) 0.0 K/uL (0.0-0.1) 01/18/21 19:15 Nucleated RBC % 0.0 /100WBC 01/18/21 19:15 Nucleated RBCs # 0 K/uL 01/18/21 19:15 Sodium 141 mmol/L (136-145) 01/18/21 19:15 Potassium 4.7 mmol/L (3.5-5.1) 01/18/21 19:15 Chloride 105 mmol/L (98-107) 01/18/21 19:15 Carbon Dioxide 24.4 mmol/L (21.0-32.0) 01/18/21 19:15 BUN 15 mg/dL (7.0-18.0) 01/18/21 19:15 Creatinine 1.0 mg/dL (0.6-1.0) 01/18/21 19:15 Est Cr Clr Drug Dosing 83.62 mL/min 01/18/21 19:15 Estimated GFR (MDRD) > 60.0 ml/min 01/18/21 19:15 Glucose 140 mg/dL (74-106) H 01/18/21 19:15 Calcium 8.9 mg/dL (8.5-10.1) 01/18/21 19:15 Total Bilirubin 0.4 mg/dL (0.2-1.0) 01/18/21 19:15 AST 33 IU/L (15-37) 01/18/21 19:15 ALT 56 IU/L (14-63) 01/18/21 19:15 Alkaline Phosphatase 63 U/L (46-116) 01/18/21 19:15 Total Protein 7.1 g/dL (6.4-8.2) 01/18/21 19:15 Albumin 3.7 g/dL (3.4-5.0) 01/18/21 19:15 Globulin 3.4 g/dL (2.6-4.0) 01/18/21 19:15 Albumin/Globulin Ratio 1.1 (0.9-1.6) 01/18/21 19:15 Lipase 94 U/L (73-393) 01/18/21 19:15 Urine Color YELLOW 01/18/21 19:50 Urine Appearance HAZY 01/18/21 19:50 Urine pH 5.5 (5.0-8.0) 01/18/21 19:50 Ur Specific [place] >= 1.030 (1.001-1.035) 01/18/21 19:50 Urine Protein NEGATIVE mg/dL (NEGATIVE) 01/18/21 19:50 Urine Glucose (UA) NEGATIVE mg/dL (NEGATIVE) 01/18/21 19:50 Urine Ketones NEGATIVE mg/dL (NEGATIVE) 01/18/21 19:50 Urine Occult Blood MODERATE (NEGATIVE) H 01/18/21 19:50 Urine Nitrite NEGATIVE (NEGATIVE) 01/18/21 19:50 Urine Bilirubin NEGATIVE (NEGATIVE) 01/18/21 19:50 Urine Urobilinogen 0.2 EU/dL (<2.0) 01/18/21 19:50 Ur Leukocyte Esterase NEGATIVE (NEGATIVE) 01/18/21 19:50 Urine RBC 1-3 (0-2/HPF) 01/18/21 19:50 Urine WBC 0-2 (0-5/HPF) 01/18/21 19:50 Ur Epithelial Cells FEW (NONE-FEW) 01/18/21 19:50 Amorphous Sediment FEW (NEGATIVE) 01/18/21 19:50 Urine Bacteria FEW (NEGATIVE) 01/18/21 19:50 Urine Mucus LIGHT (NONE-MOD) 01/18/21 19:50 Urine HCG, Qual NEGATIVE (NEGATIVE) 01/18/21 19:50 SARS-CoV-2 RNA (AILEEN) NEGATIVE (NEGATIVE) 01/18/21 19:30 - Allergies Allergies/Adverse Reactions: Allergies Allergy/AdvReac Type Severity Reaction Status Date / Time Penicillins Allergy Rash Verified 01/19/21 00:32 - Anesthesia Plan Pre-Op Medication Ordered: Other (scopolamine patch) - Acknowledgements Anesthesia Type Planned: General Anesthesia Pt an Appropriate Candidate for the Planned Anesthesia: Yes Alternatives and Risks of Anesthesia Discussed w Pt/Guardian: Yes Pt/Guardian Understands and Agrees with Anesthesia Plan: Yes PreAnesthesia Questionnaire - Past Health History Medical/Surgical History: Denies Medical/Surgical History HEENT History: Reports: None Cardiovascular History: Reports: None Respiratory History: Reports: None 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 Endocrine/Metabolic History: Reports: None Hematologic History: Reports: None Dermatologic History: Reports: None - Infectious Disease History Infectious Disease History: Reports: Chicken Pox - Past Surgical History HEENT Surgical History: Reports: None Cardiovascular Surgical History: Reports: None GI Surgical History: Reports: Cholecystectomy Female Surgical History: Reports: Section - SUBSTANCE USE Tobacco Use Status *Q: Never Tobacco User Recreational Drug Use History: No - CURRENT (IN HOUSE) MEDS Current Meds: Current Medications Lactated Ringer's (Ringers, Lactated) 1,000 mls @ 125 mls/hr IV ASDIRECTED [facility] Last Admin: 01/19/21 08:31 Dose: 125 mls/hr Documented by: Ciprofloxacin/Dextrose 400 mg/ (Premix) 200 mls @ 200 mls/hr IV Q12H [facility] Last Admin: 01/18/21 23:17 Dose: Not Given Documented by: Morphine Sulfate (Morphine 2 Mg/Ml Syringe) 1 - 3 mg IVPUSH Q1H PRN PRN Reason: Pain Last Admin: 01/19/21 03:47 Dose: 2 mg Documented by: Discontinued Medications Sodium Chloride (Normal Saline) 1,000 mls @ 999 mls/hr IV STAT ONE Stop: 01/18/21 20:01 Last Admin: 01/18/21 19:19 Dose: 999 mls/hr Documented by: Lactated Ringer's (Ringers, Lactated) 500 mls @ 999 mls/hr IV .BOLUS ONE Stop: 01/18/21 23:16 Last Admin: 01/18/21 23:01 Dose: 999 mls/hr Documented by: Ciprofloxacin/Dextrose 400 mg/ (Premix) 200 mls @ 200 mls/hr IV NOW STA Stop: 01/18/21 23:46 Last Admin: 01/18/21 22:59 Dose: 200 mls/hr Documented by: Metronidazole 500 mg/ Premix 100 mls @ 100 mls/hr IV ONETIME ONE Stop: 01/18/21 23:47 Last Admin: 01/18/21 23:01 Dose: 100 mls/hr Documented by: Iopamidol (Iopamidol 755 Mg/Ml 500 Ml Multipack Bottle) 100 ml IVPUSH ONETIME STA Stop: 01/18/21 20:57 Last Admin: 01/18/21 20:56 Dose: 100 ml Documented by: Morphine Sulfate (Morphine 4 Mg/Ml Syringe) 4 mg IVPUSH ONETIME ONE Stop: 01/18/21 19:02 Last Admin: 01/18/21 19:19 Dose: 4 mg Documented by: Ondansetron HCl (Ondansetron 4 Mg/2 Ml Sdv) 4 mg IVPUSH ONETIME ONE Stop: 01/18/21 19:02 Last Admin: 01/18/21 19:19 Dose: 4 mg Documented by:
[2021-01-19] MEDS: Ciprofloxacin in D5W 400 MG in Premix Bag 1 BAG IV SCH ×4 (10:22→23:46)
[2021-01-19] MEDS ORDERED: Propofol 200 MG/20 ML SDV ONE (12:16)
[2021-01-19] MEDS ORDERED: Lidocaine 2% 5 ML SDV ONE (12:16)
[2021-01-19] MEDS ORDERED: Ondansetron 4 MG/2 ML SDV ONE (12:16)
[2021-01-19] MEDS ORDERED: Dexmedetomidine 200 MCG/2 ML SDV ONE (12:16)
[2021-01-19] MEDS ORDERED: Dexamethasone 4 MG/ML 5 ML MDV ONE (12:16)
[2021-01-19] MEDS ORDERED: fentaNYL 100 MCG/2 ML SDV ONE (12:17)
[2021-01-19] MEDS ORDERED: Rocuronium Bromide 50 MG/5 ML Syringe ONE (12:17)
[2021-01-19] MEDS ORDERED: Midazolam 1 MG/ML 2 ML SDV ONE (12:17)
[2021-01-19] MEDS ORDERED: cefOXitin 1 GM Vial ONE (12:23)
[2021-01-19] MEDS ORDERED: Sugammadex Sodium 200 MG/2 ML VIAL ONE (13:14)
[2021-01-19] MEDS ORDERED: Ketorolac 30 MG/ML SDV ONE (13:14)
[2021-01-19] MEDS ORDERED: Acetaminophen/HYDROcodone 325-5 MG Tab PO PRN (14:12)
[2021-01-19] MEDS ORDERED: Acetaminophen 325 MG Tab PO PRN (14:12)
--- NOTE | 2021-01-19 14:14 | PCM.OPNOTE ---
- General Post-Op/Procedure Note Date of Surgery/Procedure: 01/19/21 Operative Procedure(s): Laparoscopic appendectomy Pre Op Diagnosis: Acute abdomen Post-Op Diagnosis: Acute appendicitis without perforation Anesthesia Technique: General ET Tube (My ASA IIIE) Primary Surgeon: J Luis Oro Fluid Replacement, Intraop: 1,100 Output, Urine Amount: 175 EBL in mLs: 5 Condition: Stable Free Text/Narrative:: Intake & Output 01/19/21 01/19/21 01/19/21 03:59 11:59 19:59 Intake Total 424 Output Total 650 Balance -226 DICTATION 144791 CPT CODE 61107
[2021-01-19] MEDS ORDERED: Lactated Ringers 1,000 ML IV SCH (14:15)
--- NOTE | 2021-01-19 14:32 | PCM.POSTAN ---
POST ANESTHESIA ASSESSMENT - MENTAL STATUS Mental Status: Alert, Oriented - VITAL SIGNS Vital Signs: Last Vital Signs Temp 98.2 F 01/19/21 14:12 Pulse 66 01/19/21 14:28 Resp 14 01/19/21 14:28 BP 96/46 L 01/19/21 14:28 Pulse Ox 94 L 01/19/21 14:28 - RESPIRATORY Respiratory Status: Respiratory Rate WNL, Airway Patent, O2 Saturation Stable - CARDIOVASCULAR CV Status: Pulse Rate WNL, Blood Pressure Stable - GASTROINTESTINAL GI Status: No Symptoms - POST OP HYDRATION Hydration Status: Adequate & Stable
--- NOTE | 2021-01-19 14:33 | PCM48HPAN ---
Post Anesthesia Note - EVALUATION WITHIN 48HRS OF ANESTHETIC Vital Signs in Normal Range: Yes Patient Participated in Evaluation: Yes Respiratory Function Stable: Yes Airway Patent: Yes Cardiovascular Function Stable: Yes Hydration Status Stable: Yes Pain Control Satisfactory: Yes Nausea and Vomiting Control Satisfactory: Yes Mental Status Recovered: Yes Vital Signs: Last Vital Signs Temp 98.2 F 01/19/21 14:12 Pulse 66 01/19/21 14:28 Resp 14 01/19/21 14:28 BP 96/46 L 01/19/21 14:28 Pulse Ox 94 L 01/19/21 14:28
--- NOTE | 2021-01-19 20:37 | OR ---
SURGEON: J Luis Oro M.D. DATE OF PROCEDURE: 01/19/2021 OPERATION PERFORMED: Laparoscopic appendectomy. PRIMARY SURGEON: J Luis Oro M.D. ANESTHESIA: General endotracheal. ASA CLASSIFICATION: IIIE. PREOPERATIVE DIAGNOSIS: Acute abdomen. POSTOPERATIVE DIAGNOSIS: Acute nonruptured appendicitis. ESTIMATED BLOOD LOSS: 5 mL. INTRAOPERATIVE FLUID REPLACEMENT: 1100 mL of crystalloid. INTRAOPERATIVE URINARY OUTPUT: 175 mL. DESCRIPTION OF PROCEDURE: The patient was taken in to the operating room and placed on the operating table in the supine position. Knee-high TEDs and sequential compression boots were placed. A time-out was called for appropriate identification of the patient and procedure. Following satisfactory attainment of general endotracheal anesthesia, a Jackson catheter was placed in the patient's urinary bladder. The abdomen was prepped with DuraPrep solution, and sterile drapes were applied. The skin just above the umbilicus was infiltrated with 0.5% Marcaine solution. Skin incision was made and deepened through the subcutaneous tissue obtaining hemostasis with the use of electrocautery. Veress needle was introduced into the peritoneal cavity. The saline drop test was positive. Carbon dioxide pneumoperitoneum was established with the release set at 15 cm of water. Once a satisfactory pneumoperitoneum was established, a 5 mm camera and port were placed through the supraumbilical incision. The patient was now positioned with her head down and rolled to the left. Under camera vision, a 12 mm suprapubic and 5 mm left lower quadrant ports were placed. Each incision had preemptively been infiltrated with 0.5% Marcaine solution. With all trocars in place, the cecum was grasped and the appendix was acutely inflamed and easily delivered. The mesoappendix was taken down with the Harmonic scalpel. The base of the appendix was not involved within an inflammatory process. This was doubly ligated with 0 PDS Endoloops. The appendix was then amputated using the Harmonic scalpel and promptly placed in an Endopouch and maintained in situ. The right lower quadrant was irrigated with sterile saline solution, and all fluid was aspirated. Under camera vision, the 12 mm suprapubic port and EndoCatch containing appendix were removed. The 5 mm left lower quadrant port was removed, and finally the supraumbilical camera and port were removed. Wounds were inspected for hemostasis and no bleeding was noted. The supraumbilical and suprapubic incisions were closed in two layers approximating the subcutaneous tissue with 3-0 Vicryl, and the skin with subcuticular 4-0 Monocryl. The left lower quadrant port was closed with subcuticular 4-0 Monocryl. All incisions were Steri-Stripped and dressed with sterile Tegaderm pads. Jackson catheter was removed prior to emergence from anesthesia. Following emergence from anesthesia and extubation, the patient was taken to recovery room in satisfactory condition. ABRIL BLACKWOOD /[id number]
[2021-01-20] MEDS: Lactated Ringers 1,000 ML IV SCH
[2021-01-20 07:45] VITALS: BP 120/65; PULSE 64
== END 2021-01-20 10:20 | disposition home or self-care (01) ==
LOC: MW.ED 18:28 → MW.MS 22:49
PROVIDERS: ADMIT Surgery; ATTEND Surgery
DX: K35.80 Unspecified acute appendicitis (principal); Z88.0 Allergy status to penicillin; Z90.49 Acquired absence of other specified parts of digestive tract; Z20.822 Contact with and (suspected) exposure to COVID-19
CPT/HCPCS: 00840; 36415; 74177; 74177-26; 80053; 81001; 81025; 83690; 85025; 88304; 96365; 96367; 96375; 96376; 99285-25; G0378; J0131; J0694; J0744; J1100; J1885; J2250; J2270; J2405; J2704; J3010; J3490; J7030; J7120; Q9967; U0002

== ENCOUNTER 2024-04-22 13:25 | Emergency (ER) | payer SELFPAY | END 2024-04-22 15:34 | disposition left against medical advice (07) | LOC: MW.ED 13:25 | DX: Z53.21 Procedure and treatment not carried out due to patient leaving prior to being seen by health care provider (principal) ==

== ENCOUNTER 2024-04-27 00:56 | Emergency (ER) | payer BC ==
[2024-04-27 01:25] VITALS: BP 157/101; PULSE 77
== END 2024-04-27 02:47 | disposition home or self-care (01) ==
LOC: MW.ED 00:56
DX: M25.552 Pain in left hip (principal); Z75.8 Other problems related to medical facilities and other health care; Z88.1 Allergy status to other antibiotic agents; Z88.0 Allergy status to penicillin; Z90.49 Acquired absence of other specified parts of digestive tract
CPT/HCPCS: 36415; 73552-26-LT; 73552-LT; 73590-26-LT; 73590-LT; 85379; 99283